=== PATIENT | male | born 1955 | race Caucasian/White ===

== ENCOUNTER 2016-06-09 21:29 | Inpatient (IN) | payer MEDICARE ==
[~2016-06-09] VITALS: Ht 172.7 cm; Wt 68.1 kg
[~2016-06-09 21:29] MED LIST: ASPIRIN 81M81 MG/TA2 PO; LIPITOR 10MG10 MG PO; LIPITOR 40MG TA40 MG PO; LOPRESSOR 550 MG/TAB PO; NORCO 325 MG-51 TAB PO; PAMELOR 25MG25 MG PO; PLAVIX 75MG TAB75 MG PO; PRINIVIL20 MG PO; TOPROL XL 25MG25 MG PO
[2016-06-09 21:59] LABS: BASO % 0.4 % (0.0-2.0); EOS # 0.1 (0.0-0.7); GRAN # 8.4 (1.4-6.5); GRAN % 78.5 % (42.2-75.2); HEMOGLOBIN 12.3 g/dl (13.5-18.0); LYMPH # 1.3 (1.2-3.4); LYMPH % 11.9 % (20.0-51.0); MEAN CELL VOLUME 94 fl (80.0-100.0); MEAN CORPUSCULAR HEMOGLOBIN 32 pg (27.0-31.0); MEAN CORPUSCULAR HGB CONC 34 g/dl (33.0-37.0); MEAN PLATELET VOLUME 10.4 fl (7.4-10.4); MONO # 0.8 (0.1-0.6); MONO % 7.8 % (1.7-9.3); PLATELET COUNT 273 K/mm3 (130-400); RED BLOOD COUNT 3.86 M/mm3 (4.20-5.60); REDCELL DISTRIBUTION WIDTH-CV 12.9 % (11.5-14.5); WHITE BLOOD COUNT 10.7 K/mm3 (4.8-10.8)
[2016-06-09 22:06] LABS: HEMATOCRIT 36.4 % (42.0-52.0)
[2016-06-09 22:15] LABS: ADJUSTED CALCIUM 9.4 mg/dL (8.4-10.2); ALBUMIN 4.6 gm/dL (3.5-5.0); BILIRUBIN,TOTAL 1.6 mg/dL (0.0-1.0); CALCIUM 9.9 mg/dL (8.4-10.2); CREATININE, serum 2.26 mg/dL (0.66-1.25); POTASSIUM 4.7 mmol/L (3.4-5.0); TOTAL PROTEIN 8.3 gm/dL (6.4-8.2)
[2016-06-10 00:47] VITALS: BP 124/74; PULSE 86; TEMP 97.9
[2016-06-10] MEDS ORDERED: PRINIVIL20 MG PO (04:39)
[2016-06-10] MEDS ORDERED: EFFIENT10 MG PO (04:39)
[2016-06-10] MEDS ORDERED: NORVASC 10MG10 MG PO (04:41)
[2016-06-10 04:51] VITALS: BP 101/58; PULSE 69; TEMP 97.9
[2016-06-10 10:16] VITALS: BP 94/55; PULSE 66; TEMP 98.4
[2016-06-10 10:30] LABS: MEAN CELL VOLUME 95 fl (80.0-100.0); MEAN CORPUSCULAR HGB CONC 34 g/dl (33.0-37.0); MEAN PLATELET VOLUME 10.8 fl (7.4-10.4); PLATELET COUNT 213 K/mm3 (130-400); RED BLOOD COUNT 3.72 M/mm3 (4.20-5.60); REDCELL DISTRIBUTION WIDTH-CV 12.9 % (11.5-14.5); WHITE BLOOD COUNT 5.4 K/mm3 (4.8-10.8)
[2016-06-10 10:33] LABS: HEMATOCRIT 35.2 % (42.0-52.0); HEMOGLOBIN 11.8 g/dl (13.5-18.0); MEAN CORPUSCULAR HEMOGLOBIN 32 pg (27.0-31.0)
[2016-06-10 10:40] LABS: CALCIUM 8.6 mg/dL (8.4-10.2); CREATININE, serum 1.26 mg/dL (0.66-1.25)
[2016-06-10 14:00] VITALS: BP 115/60; PULSE 73
[2016-06-10 17:34] VITALS: BP 116/54; PULSE 69; TEMP 98
[2016-06-10 21:10] VITALS: BP 119/60; PULSE 73; TEMP 98.7
[2016-06-11 01:45] VITALS: BP 119/62; PULSE 74; TEMP 98.5
[2016-06-11 05:28] VITALS: BP 112/63; PULSE 83; TEMP 98.5
[2016-06-11 07:16] LABS: MEAN CELL VOLUME 97 fl (80.0-100.0); MEAN CORPUSCULAR HGB CONC 33 g/dl (33.0-37.0); MEAN PLATELET VOLUME 10.8 fl (7.4-10.4); PLATELET COUNT 203 K/mm3 (130-400); RED BLOOD COUNT 3.46 M/mm3 (4.20-5.60); REDCELL DISTRIBUTION WIDTH-CV 12.8 % (11.5-14.5); WHITE BLOOD COUNT 5.3 K/mm3 (4.8-10.8)
[2016-06-11 07:18] LABS: HEMATOCRIT 33.5 % (42.0-52.0); HEMOGLOBIN 10.9 g/dl (13.5-18.0); MEAN CORPUSCULAR HEMOGLOBIN 32 pg (27.0-31.0)
[2016-06-11 07:34] LABS: CALCIUM 8.6 mg/dL (8.4-10.2); CREATININE, serum 1.16 mg/dL (0.66-1.25); POTASSIUM 4.3 mmol/L (3.4-5.0)
[2016-06-11 10:35] VITALS: BP 122/63; PULSE 77; TEMP 98
[2016-06-11 13:42] VITALS: BP 117/59; PULSE 78
[2016-06-11 16:59] VITALS: BP 128/71; PULSE 89; TEMP 97.5
[2016-06-11 21:32] VITALS: BP 125/70; PULSE 87; TEMP 98.3
[2016-06-12 05:23] VITALS: BP 93/53; PULSE 81; TEMP 98.5
[2016-06-12 09:30] VITALS: BP 124/90; PULSE 93; TEMP 97.5
[2016-06-12 13:51] VITALS: BP 111/67; PULSE 75
== END 2016-06-12 16:32 | disposition home or self-care (01) | DRG 389 ==
LOC: COL.ER 21:29 → SURG 23:14
PROVIDERS: Emergency Medicine; Surgery
DX: K56.60 Unspecified intestinal obstruction (principal); N17.9 Acute kidney failure, unspecified; J44.9 Chronic obstructive pulmonary disease, unspecified; F17.210 Nicotine dependence, cigarettes, uncomplicated
CPT/HCPCS: J1170; J1650; J2405; J7030

== ENCOUNTER 2016-08-02 22:02 | Observation (INO) | payer MEDICARE, MEDICAID ==
[~2016-08-02] VITALS: Ht 172.7 cm; Wt 63.3 kg
[~2016-08-02 22:02] MED LIST changes: +EFFIENT10 MG PO; +NORVASC 10MG10 MG PO
[2016-08-02 22:46] LABS: BASO # 0.1 (0.0-0.2); BASO % 0.4 % (0.0-2.0); EOS # 0.1 (0.0-0.7); EOS % 0.8 % (0-4.0); GRAN # 9.1 (1.4-6.5); GRAN % 80.2 % (42.2-75.2); HEMATOCRIT 39.6 % (42.0-52.0); HEMOGLOBIN 13.5 g/dl (13.5-18.0); LYMPH # 1.2 (1.2-3.4); LYMPH % 10.6 % (20.0-51.0); MEAN CELL VOLUME 92 fl (80.0-100.0); MEAN CORPUSCULAR HEMOGLOBIN 32 pg (27.0-31.0); MEAN CORPUSCULAR HGB CONC 34 g/dl (33.0-37.0); MEAN PLATELET VOLUME 10.8 fl (7.4-10.4); MONO # 0.9 (0.1-0.6); MONO % 7.7 % (1.7-9.3); PLATELET COUNT 265 K/mm3 (130-400); RED BLOOD COUNT 4.29 M/mm3 (4.20-5.60); REDCELL DISTRIBUTION WIDTH-CV 13.3 % (11.5-14.5); WHITE BLOOD COUNT 11.4 K/mm3 (4.8-10.8)
[2016-08-02 22:52] LABS: ADJUSTED CALCIUM 9.2 mg/dL (8.4-10.2); ALBUMIN 4.7 gm/dL (3.5-5.0); BILIRUBIN,TOTAL 1.5 mg/dL (0.0-1.0); CALCIUM 9.8 mg/dL (8.4-10.2); CREATININE, serum 2.32 mg/dL (0.66-1.25); POTASSIUM 4.6 mmol/L (3.4-5.0)
[2016-08-02 23:36] LABS: PH 5 (5-8); SQUAMOUS EPITHELIAL 20-50 /hpf; URINE APPEARANCE Cloudy; URINE BACTERIA None Seen /hpf; URINE BILIRUBIN Negative (NEGATIVE); URINE BLOOD Negative (NEGATIVE); URINE COLOR Yellow; URINE GLUCOSE Negative (NEGATIVE); URINE KETONE Trace (NEGATIVE); URINE UROBILINOGEN Negative (NEGATIVE)
[2016-08-03 01:32] VITALS: BP 116/58; PULSE 67; TEMP 98.5
[2016-08-03 06:07] VITALS: BP 108/55; PULSE 61; TEMP 97.9
[2016-08-03 10:16] VITALS: BP 101/56; PULSE 67
[2016-08-03 12:02] LABS: BASO % 0.7 % (0.0-2.0); EOS # 0.1 (0.0-0.7); EOS % 2.2 % (0-4.0); GRAN # 3.1 (1.4-6.5); GRAN % 68.9 % (42.2-75.2); LYMPH # 0.9 (1.2-3.4); LYMPH % 20.2 % (20.0-51.0); MEAN CELL VOLUME 96 fl (80.0-100.0); MEAN CORPUSCULAR HGB CONC 33 g/dl (33.0-37.0); MEAN PLATELET VOLUME 10.7 fl (7.4-10.4); MONO # 0.4 (0.1-0.6); MONO % 7.8 % (1.7-9.3); PLATELET COUNT 167 K/mm3 (130-400); RED BLOOD COUNT 3.33 M/mm3 (4.20-5.60); REDCELL DISTRIBUTION WIDTH-CV 13.3 % (11.5-14.5); WHITE BLOOD COUNT 4.5 K/mm3 (4.8-10.8)
[2016-08-03 12:04] LABS: HEMATOCRIT 32.1 % (42.0-52.0); HEMOGLOBIN 10.5 g/dl (13.5-18.0); MEAN CORPUSCULAR HEMOGLOBIN 32 pg (27.0-31.0)
[2016-08-03 12:19] LABS: CALCIUM 8.1 mg/dL (8.4-10.2); CREATININE, serum 1.51 mg/dL (0.66-1.25); POTASSIUM 4.1 mmol/L (3.4-5.0)
[2016-08-03 13:17] VITALS: BP 107/62; PULSE 60; TEMP 97.4
== END 2016-08-03 17:50 | disposition home or self-care (01) ==
LOC: COL.ER 22:02 → SURG 08-03 00:14
PROVIDERS: Emergency Medicine; Surgery
DX: K56.60 Unspecified intestinal obstruction (principal); Z93.3 Colostomy status; I25.10 Atherosclerotic heart disease of native coronary artery without angina pectoris; Z95.5 Presence of coronary angioplasty implant and graft; J44.9 Chronic obstructive pulmonary disease, unspecified; I10 Essential (primary) hypertension; Z85.038 Personal history of other malignant neoplasm of large intestine; I73.9 Peripheral vascular disease, unspecified; F17.210 Nicotine dependence, cigarettes, uncomplicated
CPT/HCPCS: G0378; J1170; J2405; J3010; J7030

== ENCOUNTER 2016-11-01 22:00 | Inpatient (IN) | payer MEDICARE, MEDICAID ==
[~2016-11-01] VITALS: Ht 172.7 cm; Wt 65.0 kg
[2016-11-01 22:48] LABS: BASO % 0.3 % (0.0-2.0); EOS # 0.1 (0.0-0.7); EOS % 1.2 % (0-4.0); GRAN # 9.8 (1.4-6.5); HEMATOCRIT 40.3 % (42.0-52.0); HEMOGLOBIN 13.8 g/dl (13.5-18.0); LYMPH % 8.7 % (20.0-51.0); MEAN CELL VOLUME 91 fl (80.0-100.0); MEAN CORPUSCULAR HEMOGLOBIN 31 pg (27.0-31.0); MEAN CORPUSCULAR HGB CONC 34 g/dl (33.0-37.0); MEAN PLATELET VOLUME 10.5 fl (7.4-10.4); MONO # 0.9 (0.1-0.6); MONO % 7.5 % (1.7-9.3); PLATELET COUNT 256 K/mm3 (130-400); RED BLOOD COUNT 4.42 M/mm3 (4.20-5.60); REDCELL DISTRIBUTION WIDTH-CV 13.7 % (11.5-14.5); WHITE BLOOD COUNT 11.9 K/mm3 (4.8-10.8)
[2016-11-01 22:58] LABS: ADJUSTED CALCIUM 9.7 mg/dL (8.4-10.2); ALBUMIN 5.1 gm/dL (3.5-5.0); BILIRUBIN,TOTAL 1.2 mg/dL (0.0-1.0); C-REACTIVE PROTEIN 1.4 mg/dL (0.0-0.9); CALCIUM 10.6 mg/dL (8.4-10.2); CREATININE, serum 1.8 mg/dL (0.66-1.25); POTASSIUM 4.8 mmol/L (3.4-5.0); TOTAL PROTEIN 8.7 gm/dL (6.4-8.2)
[2016-11-02] VITALS (7 sets, daily range): BP systolic 103–118; BP diastolic 57–67; PULSE 74–87; TEMP 97.5–98.5
[2016-11-03 05:39] VITALS: BP 116/62; PULSE 84; TEMP 98.5
[2016-11-03 09:20] VITALS: BP 119/62; PULSE 85; TEMP 98
[2016-11-03 14:03] VITALS: BP 116/79; PULSE 87; TEMP 98
== END 2016-11-03 17:49 | disposition home or self-care (01) | DRG 389 ==
LOC: COL.ER 22:00 → SURG 23:36
PROVIDERS: Nurse Practitioner
DX: K56.60 Unspecified intestinal obstruction (principal); E44.0 Moderate protein-calorie malnutrition; Z93.3 Colostomy status; F17.210 Nicotine dependence, cigarettes, uncomplicated; Z95.5 Presence of coronary angioplasty implant and graft
CPT/HCPCS: J1170; J2405; J7030; J7120

== ENCOUNTER → 2017-06-15 | Outpatient (CLI) | payer MEDICARE, MEDICAID | LOC: COL.RAD 08:06 | DX: C61 Malignant neoplasm of prostate (principal); Z85.038 Personal history of other malignant neoplasm of large intestine; Z90.49 Acquired absence of other specified parts of digestive tract; Z95.820 Peripheral vascular angioplasty status with implants and grafts | CPT/HCPCS: A9503; Q9967 ==

== ENCOUNTER → 2017-10-10 | Outpatient (REF) | LOC: ZLAB.WCH 16:11 | DX: Z01.89 Encounter for other specified special examinations (principal) | CPT/HCPCS: G0103 ==

== ENCOUNTER → 2018-12-31 | Outpatient (CLI) | payer MEDICARE, MEDICAID | LOC: COL.RAD 10:07 | DX: Z01.812 Encounter for preprocedural laboratory examination (principal); C18.7 Malignant neoplasm of sigmoid colon; J44.9 Chronic obstructive pulmonary disease, unspecified; I77.810 Thoracic aortic ectasia; I25.10 Atherosclerotic heart disease of native coronary artery without angina pectoris; Z90.49 Acquired absence of other specified parts of digestive tract; N13.30 Unspecified hydronephrosis; I70.0 Atherosclerosis of aorta; Z95.828 Presence of other vascular implants and grafts ==

== ENCOUNTER 2019-01-14 16:57 | Emergency (ER) | payer MEDICARE, MEDICAID ==
[~2019-01-14] VITALS: Ht 172.7 cm; Wt 61.8 kg
[2019-01-14 17:02] VITALS: TEMP 96.9
[2019-01-14] MEDS ORDERED: FLOMAX 0.40.4 MG/CAP PO (17:28)
[2019-01-14 18:00] LABS: BASO # 0.1 (0.0-0.2); BASO % 0.7 % (0.0-2.0); EOS # 0.3 (0.0-0.7); GRAN # 4.2 (1.4-6.5); GRAN % 61.8 % (42.2-75.2); LYMPH # 1.7 (1.2-3.4); LYMPH % 25.3 % (20.0-51.0); MEAN CELL VOLUME 90 fl (80.0-100.0); MEAN CORPUSCULAR HEMOGLOBIN 30 pg (27.0-31.0); MEAN CORPUSCULAR HGB CONC 33 g/dl (33.0-37.0); MEAN PLATELET VOLUME 10.5 fl (7.4-10.4); MONO # 0.5 (0.1-0.6); MONO % 7.9 % (1.7-9.3); PLATELET COUNT 230 K/mm3 (130-400); RED BLOOD COUNT 3.72 M/mm3 (4.20-5.60); REDCELL DISTRIBUTION WIDTH-CV 13.8 % (11.5-14.5)
[2019-01-14 18:04] LABS: HEMATOCRIT 33.6 % (42.0-52.0)
[2019-01-14 18:16] LABS: ALANINE AMINOTRANSFERASE 13 U/L (21-72); ALBUMIN 4.3 gm/dL (3.5-5.0); ALKALINE PHOSPHATASE 87 U/L (50-136); ANION GAP 9 mmol/L (7-16); AST,SGOT 41 U/L (15-37); BILIRUBIN,TOTAL 0.5 mg/dL (0.0-1.0); BLOOD UREA NITROGEN 24 mg/dL (9-20); C-REACTIVE PROTEIN 0.7 mg/dL (0.0-0.9); CALCIUM 9.5 mg/dL (8.4-10.2); CARBON DIOXIDE 25 mmol/L (22-30); CHLORIDE 103 mmol/L (98-107); CREATININE, serum 1.97 (0.66-1.25); GLUCOSE 95 mg/dL (74-106); POTASSIUM 4.2 mmol/L (3.4-5.0); SODIUM 137 mmol/L (137-145); TOTAL PROTEIN 7.7 gm/dL (6.4-8.2)
[2019-01-14 18:26] LABS: TROPONIN-I < 0.012 ng/mL (0.000-0.035)
[2019-01-14] MEDS ORDERED: NORVASC 5MG5 MG/TAB PO (19:07)
[2019-01-14] MEDS ORDERED: AMOXICILLIN 8751 TAB PO (19:07)
[2019-01-14 20:02] VITALS: BP 171/91; PULSE 72
== END 2019-01-14 21:00 | disposition home or self-care (01) ==
LOC: COL.ER 16:57
PROVIDERS: Emergency Medicine
DX: I12.9 Hypertensive chronic kidney disease with stage 1 through stage 4 chronic kidney disease, or unspecified chronic kidney disease (principal); N18.9 Chronic kidney disease, unspecified; H66.92 Otitis media, unspecified, left ear; F17.210 Nicotine dependence, cigarettes, uncomplicated; Z79.82 Long term (current) use of aspirin; Z85.038 Personal history of other malignant neoplasm of large intestine

== ENCOUNTER 2019-12-29 20:55 | Inpatient (IN) | payer MEDICARE, MEDICAID ==
[~2019-12-29] VITALS: Ht 172.7 cm; Wt 63.8 kg
[~2019-12-29 20:55] MED LIST changes: +AMOXICILLIN 8751 TAB PO; +FLOMAX 0.40.4 MG/CAP PO; +NORVASC 5MG5 MG/TAB PO
[2019-12-29 22:07] LABS: BASO # 0.1 (0.0-0.2); BASO % 0.7 % (0.0-2.0); EOS # 0.1 (0.0-0.7); EOS % 1.6 % (0-4.0); GRAN # 5.7 (1.4-6.5); GRAN % 75.7 % (42.2-75.2); LYMPH # 1.2 (1.2-3.4); LYMPH % 15.8 % (20.0-51.0); MEAN CELL VOLUME 91 fl (80.0-100.0); MEAN CORPUSCULAR HGB CONC 32 g/dl (33.0-37.0); MEAN PLATELET VOLUME 10.3 fl (7.4-10.4); MONO # 0.4 (0.1-0.6); MONO % 5.8 % (1.7-9.3); PLATELET COUNT 242 K/mm3 (130-400); RED BLOOD COUNT 2.26 M/mm3 (4.20-5.60)
[2019-12-29 22:15] LABS: HEMATOCRIT 20.5 % (42.0-52.0); HEMOGLOBIN 6.6 g/dl (13.5-18.0); MEAN CORPUSCULAR HEMOGLOBIN 29 pg (27.0-31.0)
[2019-12-29 22:19] LABS: INR 1.1 (0.8-3.0)
[2019-12-29 22:21] LABS: PARTIAL THROMBOPLASTIN TIME 32.4 SECONDS (26.0-37.0)
[2019-12-29 22:41] LABS: ALBUMIN 3.6 gm/dL (3.5-5.0); BILIRUBIN,TOTAL 0.6 mg/dL (0.0-1.0); CALCIUM 8.6 mg/dL (8.4-10.2); CREATININE, serum 1.89 (0.66-1.25); POTASSIUM 4.6 mmol/L (3.4-5.0); TOTAL PROTEIN 6.3 gm/dL (6.4-8.2)
[2019-12-29] MEDS ORDERED: LOPRESSOR 550 MG/TAB PO (23:00)
[2019-12-29] MEDS ORDERED: NORVASC 10MG10 MG PO (23:00)
[2019-12-29 23:23] VITALS: BP 108/55; PULSE 79; TEMP 98.2
[2019-12-29 23:39] VITALS: BP 96/69; PULSE 81; TEMP 97.8
[2019-12-29 23:57] VITALS: BP 106/67; PULSE 80; TEMP 97.7
[2019-12-30] VITALS (298 sets, daily range): BP systolic 85–140; BP diastolic 53–80; PULSE 66–104; TEMP 97.4–98.6; O2SAT 72–100
[2019-12-30 04:36] LABS: BASO % 0.3 % (0.0-2.0); EOS # 0.1 (0.0-0.7); EOS % 1.5 % (0-4.0); GRAN % 74.9 % (42.2-75.2); LYMPH # 1.1 (1.2-3.4); LYMPH % 15.8 % (20.0-51.0); MEAN CELL VOLUME 89 fl (80.0-100.0); MEAN CORPUSCULAR HGB CONC 33 g/dl (33.0-37.0); MEAN PLATELET VOLUME 10.5 fl (7.4-10.4); MONO # 0.5 (0.1-0.6); MONO % 7.2 % (1.7-9.3); PLATELET COUNT 175 K/mm3 (130-400); REDCELL DISTRIBUTION WIDTH-CV 14.3 % (11.5-14.5)
[2019-12-30 04:38] LABS: HEMATOCRIT 21.3 % (42.0-52.0); HEMOGLOBIN 7.1 g/dl (13.5-18.0); MEAN CORPUSCULAR HEMOGLOBIN 30 pg (27.0-31.0)
[2019-12-30 04:44] LABS: CALCIUM 8.2 mg/dL (8.4-10.2); CREATININE, serum 1.79 (0.66-1.25); POTASSIUM 4.3 mmol/L (3.4-5.0)
--- NOTE | 2019-12-30 07:30 | NUR ---
PATIENT LYING IN BED WITH NO COMPLAINTS. VS WNL. MAROON COLORED OUTPUT FROM COLOSTOMY. AWAITING 2ND UNIT OF PRBC TO BE READY. PLAN FOR EGD TODAY AT 13:00.
--- NOTE | 2019-12-30 10:40 | NUR ---
Plan: To return home and live independently. Assessment: SW met with patient about care plan. Patient reports that he resides in [place]. Patient reports that he does not have any additional family supports. Patient reports that he has a nurse coming to his home twice weekly to change colostomy bag. Patient reports that his PCP is Dr. Dexter, last appointment was in October 13. Patient reports that he prefers [facility] for RX. Patient reports that he has DME for mobility but does not use them. Patient denies needing any additonal HHS. EMR contact Sister Brooklynn Childers POA and Brother In law Carroll . Action: SW educated patient on additional services available to him. Educated on community supports. SW will continue to follow the clients care.
--- NOTE | 2019-12-30 14:00 | NUR ---
Patient returns from EGD/colonoscopy. He is drowsy, but able to have conversation with staff. He continues to appear quite pale. Hgb and Hct recently drawn. Will await orders from hospitalist regarding possible transfer to a higher level of care.
[2019-12-30 14:34] LABS: HEMATOCRIT 24.1 % (42.0-52.0); HEMOGLOBIN 8.1 g/dl (13.5-18.0)
--- NOTE | 2019-12-30 19:10 | NUR ---
REPORT GIVEN TO PABLITO DEWITT
--- NOTE | 2019-12-30 20:26 | NUR ---
Pt assessment completed and documented. Pt resting in bed watching television. Pt alert and oriented x4. VS WNL. Denies pain. IVF infusing per orders to left ac IV site. Right hand INT CDI. Colostomy with maroon output. Pt denies any needs/concerns at this time. Call light within reach. Will continue to monitor.
[2019-12-30 22:31] LABS: HEMOGLOBIN 5.6 g/dl (13.5-18.0)
[2019-12-30 22:32] LABS: HEMATOCRIT 16.6 % (42.0-52.0)
[2019-12-31] VITALS (391 sets, daily range): BP systolic 82–127; BP diastolic 60–93; PULSE 93–125; TEMP 97.4–100.3; O2SAT 85–100
[2019-12-31 05:52] LABS: BASO % 0.5 % (0.0-2.0); EOS # 0.1 (0.0-0.7); EOS % 1.8 % (0-4.0); GRAN # 5.6 (1.4-6.5); LYMPH # 1.1 (1.2-3.4); LYMPH % 14.5 % (20.0-51.0); MEAN CELL VOLUME 88 fl (80.0-100.0); MEAN CORPUSCULAR HGB CONC 34 g/dl (33.0-37.0); MEAN PLATELET VOLUME 10.4 fl (7.4-10.4); MONO # 0.8 (0.1-0.6); MONO % 9.8 % (1.7-9.3); PLATELET COUNT 122 K/mm3 (130-400); RED BLOOD COUNT 2.55 M/mm3 (4.20-5.60); REDCELL DISTRIBUTION WIDTH-CV 14.1 % (11.5-14.5)
[2019-12-31 05:53] LABS: HEMATOCRIT 22.4 % (42.0-52.0); MEAN CORPUSCULAR HEMOGLOBIN 30 pg (27.0-31.0)
[2019-12-31 05:54] LABS: HEMOGLOBIN 7.7 g/dl (13.5-18.0)
[2019-12-31 06:02] LABS: CALCIUM 7.4 mg/dL (8.4-10.2); CREATININE, serum 1.55 (0.66-1.25); POTASSIUM 4.2 mmol/L (3.4-5.0)
--- NOTE | 2019-12-31 06:29 | NUR ---
Pt rested intermittently overnight. Hgb 5.6 during the night. CONSUELO Morris notified with orders to give 2 units PRBC. Hgb 1 hour post 2 units PRBC was 7.7. IVF infusing per orders to left AC IV. INT to right hand CDI. Pt has denied pain overnight. Pt denies any needs/concerns at this time. Will report off to dayshift who will resume cares
--- NOTE | 2019-12-31 07:38 | NUR ---
Report given to PABLITO Mitchell
--- NOTE | 2019-12-31 10:46 | NUR ---
The patient is in isolation. Clerk Of [address] attended clinical rounds with the team. Hospitalist and the patient's nurse are working on getting the patient transferred to another hospital further care.
[2019-12-31 13:01] LABS: HEMATOCRIT 19.9 % (42.0-52.0); HEMOGLOBIN 6.8 g/dl (13.5-18.0)
--- NOTE | 2019-12-31 15:27 | NUR ---
REPORT GIVEN TO ED RN AT [facility]. PATIENT WILL TRANSFER THERE VIA [facility]. REPORT ALSO GIVEN TO PABLITO OLREDO FROM [facility] AND PATIENT LEAVES WITH 5TH UNIT OF BLOOD ACTIVELY INFUSING.
--- NOTE | 2019-12-31 15:51 | NUR ---
The patient was transferred to [facility] via [facility].
== END 2019-12-31 15:20 | disposition short-term general hospital (02) | DRG 378 ==
LOC: COL.ER 20:55 → ICU 22:53
PROVIDERS: Emergency Medicine; Internal Medicine Gastroenterology; Nurse Practitioner Family; ADMIT Hospitalist
PROC: 0DJ08ZZ Inspection of Upper Intestinal Tract, Via Natural or Artificial Opening Endoscopic (ICD-10-PCS; principal; 2019-12-30 12:30)
PROC: 0DJD8ZZ Inspection of Lower Intestinal Tract, Via Natural or Artificial Opening Endoscopic (ICD-10-PCS; 2019-12-30 12:30)
DX: K92.2 Gastrointestinal hemorrhage, unspecified (principal); D62 Acute posthemorrhagic anemia; N17.9 Acute kidney failure, unspecified; E87.2 Acidosis; E87.1 Hypo-osmolality and hyponatremia; E78.5 Hyperlipidemia, unspecified; J44.9 Chronic obstructive pulmonary disease, unspecified; F17.210 Nicotine dependence, cigarettes, uncomplicated; I25.10 Atherosclerotic heart disease of native coronary artery without angina pectoris; I73.9 Peripheral vascular disease, unspecified; I12.9 Hypertensive chronic kidney disease with stage 1 through stage 4 chronic kidney disease, or unspecified chronic kidney disease; N18.30 Chronic kidney disease, stage 3 unspecified; Z95.5 Presence of coronary angioplasty implant and graft; Z85.46 Personal history of malignant neoplasm of prostate; Z85.038 Personal history of other malignant neoplasm of large intestine; Z93.3 Colostomy status; Z20.828 Contact with and (suspected) exposure to other viral communicable diseases
CPT/HCPCS: 99223-AI; 99232-AI; 99239; C9113; J2704; J7030; P9016

== ENCOUNTER 2020-05-22 16:03 | Emergency (ER) | payer MEDICARE, MEDICAID ==
[~2020-05-22] VITALS: Ht 172.7 cm; Wt 56.8 kg
[2020-05-22 16:18] VITALS: TEMP 98.2
[2020-05-22 17:16] LABS: BASO % 0.3 % (0.0-2.0); EOS % 0.3 % (0-4.0); GRAN # 10.9 (1.4-6.5); GRAN % 80.3 % (42.2-75.2); HEMATOCRIT 42.5 % (42.0-52.0); HEMOGLOBIN 14.2 g/dl (13.5-18.0); LYMPH # 1.6 (1.2-3.4); LYMPH % 12.1 % (20.0-51.0); MEAN CELL VOLUME 87 fl (80.0-100.0); MEAN CORPUSCULAR HEMOGLOBIN 29 pg (27.0-31.0); MEAN CORPUSCULAR HGB CONC 33 g/dl (33.0-37.0); MEAN PLATELET VOLUME 9.8 fl (7.4-10.4); MONO # 0.8 (0.1-0.6); MONO % 5.7 % (1.7-9.3); PLATELET COUNT 362 K/mm3 (130-400); RED BLOOD COUNT 4.91 M/mm3 (4.20-5.60); REDCELL DISTRIBUTION WIDTH-CV 13.4 % (11.5-14.5)
[2020-05-22 17:27] LABS: ALBUMIN 4.3 gm/dL (3.5-5.0); BILIRUBIN,TOTAL 0.6 mg/dL (0.0-1.0); CALCIUM 6.6 mg/dL (8.4-10.2); CREATININE, serum 6.96 (0.66-1.25); POTASSIUM 4.1 mmol/L (3.4-5.0)
[2020-05-22] MEDS ORDERED: CALCIUM-500 5001 CTB PO (17:46)
[2020-05-22] MEDS ORDERED: QUESTRAN4 GM/9 GM PO (17:47)
[2020-05-22] MEDS ORDERED: COMBIRESP IH (17:48)
[2020-05-22] MEDS ORDERED: COREG 3.123.125 MG/T PO (17:48)
[2020-05-22] MEDS ORDERED: LOMOTIL 0.025 M1 TAB PO (17:49)
[2020-05-22] MEDS ORDERED: ANTI-DIARRHEAL2 MG PO (17:50)
[2020-05-22] MEDS ORDERED: PROAMATINE10 MG PO (17:50)
[2020-05-22] MEDS ORDERED: OXY IR5 MG PO (17:51)
[2020-05-22] MEDS ORDERED: SODIUM BICARBO650 MG PO (17:52)
[2020-05-22] MEDS ORDERED: PROTONIX 40MG T40 MG PO (17:52)
[2020-05-22 18:31] LABS: ACETONE,SERUM NEGATIVE
[2020-05-22 18:41] LABS: COLLECTION METHOD CLEAN CATCH
[2020-05-22 18:47] LABS: TROPONIN-I < 0.012 ng/mL (0.000-0.035)
[2020-05-22 19:03] LABS: PH 5 (5-8); URINE APPEARANCE Turbid; URINE BACTERIA Moderate /hpf; URINE BILIRUBIN Negative (NEGATIVE); URINE BLOOD 3+ (NEGATIVE); URINE COLOR Amber; URINE GLUCOSE Negative (NEGATIVE); URINE KETONE Negative (NEGATIVE); URINE LEUKOCYTE ESTERASE 1+ (NEGATIVE); URINE NITRATE Negative (NEGATIVE); URINE PROTEIN(semi-quant) 3+ (NEGATIVE); URINE RBC >50 /hpf; URINE UROBILINOGEN Negative (NEGATIVE)
[2020-05-22 23:29] VITALS: BP 120/73; PULSE 95
== END 2020-05-22 23:29 | disposition short-term general hospital (02) ==
LOC: COL.ER 16:03
PROVIDERS: Nurse Practitioner Family
DX: N17.9 Acute kidney failure, unspecified (principal); N10 Acute pyelonephritis; I13.0 Hypertensive heart and chronic kidney disease with heart failure and stage 1 through stage 4 chronic kidney disease, or unspecified chronic kidney disease; E87.1 Hypo-osmolality and hyponatremia; A41.9 Sepsis, unspecified organism; R79.1 Abnormal coagulation profile; N18.9 Chronic kidney disease, unspecified; J44.9 Chronic obstructive pulmonary disease, unspecified; E78.5 Hyperlipidemia, unspecified; F17.210 Nicotine dependence, cigarettes, uncomplicated; Z86.73 Personal history of transient ischemic attack (TIA), and cerebral infarction without residual deficits; Z95.9 Presence of cardiac and vascular implant and graft, unspecified; Z88.8 Allergy status to other drugs, medicaments and biological substances; Z79.82 Long term (current) use of aspirin
CPT/HCPCS: J2270; J2543; J7030

== ENCOUNTER → 2020-09-28 | Outpatient (REF) ==
[~2020-09-28] MED LIST changes: +ANTI-DIARRHEAL2 MG PO; +CALCIUM-500 5001 CTB PO; +COMBIRESP IH; +COREG 3.123.125 MG/T PO; +LOMOTIL 0.025 M1 TAB PO; +OXY IR5 MG PO; +PROAMATINE10 MG PO; +PROTONIX 40MG T40 MG PO; +QUESTRAN4 GM/9 GM PO; +SODIUM BICARBO650 MG PO
== END ==
LOC: ZLAB.WCH 10:13
DX: Z01.89 Encounter for other specified special examinations (principal)